=== PATIENT | female | born 1930 | race Caucasian/White ===

== ENCOUNTER 2017-01-04 03:23 | Inpatient (IN) | payer MEDICARE, OTHER ==
[2017-01-04] MEDS ORDERED: Sodium Chloride 0.9% 10 ML Syringe FLUSH PRN ×2 (03:35)
[2017-01-04] MEDS ORDERED: Sodium Chloride 0.9% 1,000 ML IV ONE (03:35)
[2017-01-04] MEDS ORDERED: Sodium Chloride 0.9% 2.5 ML Syringe FLUSH PRN ×2 (03:35)
--- NOTE | 2017-01-04 03:40 | EDM.PDOC ---
ED HISTORY OF PRESENT ILLNESS - General Chief Complaint: Respiratory Problem Stated Complaint: COUGH Time Seen by Provider: 01/04/17 03:30 Source of Information: Reports: Patient History Limitations: Reports: No limitations - History of Present Illness INITIAL COMMENTS - FREE TEXT/NARRATIVE: HISTORY AND PHYSICAL: History of present illness: [86-year-old female with a history of atrial fibrillation [place] relative with which he is compliant, congestive heart failure on Lasix also with which she is compliant lives in assisted living now brought in by EMS for evaluation of shortness of breath and hypoxia. Patient feels she's had fever, chills, sweats and productive cough with yellow sputum denies headache or stiff neck. No abdominal pain. Normal bowel and bladder habits. Patient denies pleuritic chest pain.] Review of systems: As per history of present illness and below otherwise all systems reviewed and negative. Past medical history: As per history of present illness and as reviewed below otherwise noncontributory. Surgical history: As per history of present illness and as reviewed below otherwise noncontributory. Social history: No reported history of drug or alcohol abuse. Family history: As per history of present illness and as reviewed below otherwise noncontributory. Physical exam: HEENT: Atraumatic, normocephalic, pupils reactive, negative for conjunctival pallor or scleral icterus, mucous membranes moist, throat clear, neck supple, nontender, trachea midline. Lungs: mild scattered rhonchi, breath sounds equal bilaterally, chest nontender. Heart: S1S2, regular, negative for clicks, rubs, or JVD. Abdomen: Soft, nondistended, nontender. Negative for masses or hepatosplenomegaly. Negative for costovertebral tenderness. Pelvis: Stable nontender. Genitourinary: Deferred. Rectal: Deferred. Extremities: Atraumatic, negative for cords or calf pain. Neurovascular unremarkable. Neuro: Awake, alert, oriented. Cranial nerves grossly unremarkable. Cerebellum unremarkable. Motor and sensory unremarkable throughout. Exam nonfocal. Diagnostics: [] Therapeutics: [] Impression: [] Plan: [] Definitive disposition and diagnosis as appropriate pending reevaluation and review of above. - Related Data Allergies/ADRs: Allergies Allergy/AdvReac Type Severity Reaction Status Date / Time No Known Allergies Allergy Verified 01/04/17 03:33 Home Meds: Home Meds Metoprolol Tartrate [Lopressor] 3 tab PO BID 01/12/15 [History] Multivitamin [Multiple Vitamins] 1 tab PO DAILY 01/12/15 [History] [place]-3S/DHA/Epa/Fish Oil [Fish Oil Dr 1,000 mg Softgel] 1,000 mg PO DAILY 01/12 [History] Potassium Chloride 20 meq PO DAILY 01/12/15 [History] Furosemide [Lasix] 20 mg PO DAILY #20 tab 01/14/15 [Rx] Rivaroxaban [Xarelto] 20 mg PO DAILY 09/09/15 [History] Aspirin [Ecotrin] 1 tab PO DAILY 01/04/17 [History] Citalopram Hydrobromide [Celexa] 1 tab PO DAILY 01/04/17 [History] Digoxin 1 tab PO ASDIRECTED 01/04/17 [History] Losartan [Cozaar] 12.5 mg PO DAILY 01/04/17 [History] Lutein/Minerals/Vit A,C & E [Ocuvite] 1 tab PO DAILY 01/04/17 [History] Pantoprazole [Protonix] 1 tab PO DAILY 01/04/17 [History] Pravastatin [Pravachol] 1 tab PO BEDTIME 01/04/17 [History] Spironolactone [Aldactone] 25 mg PO DAILY 01/04/17 [History] Past Medical History Other Cardiovascular History: cardiac arrest in May 2015 Social & Family History - Tobacco Use Smoking Status *Q: Never Smoker Second Hand Smoke Exposure: No - Alcohol Use Days Per Week of Alcohol Use: 0 - Recreational Drug Use Recreational Drug Use: No ED ROS GENERAL - Review of Systems Review Of Systems: See Below (Per history of present illness) ED EXAM, GENERAL - Physical Exam Exam: See Below (Per history of present illness) Course - Vital Signs Text/Narrative:: Signs and symptoms consistent with respiratory infection with fever and productive cough an elderly female who is hypoxic at 88% on presentation. Rectal temp 101 treated with Tylenol. Blood cultures and sputum culture pending. Patient 92% on 2 L nasal cannula. She does not wear home oxygen baseline. Denies chest pain. No pleuritic pain or extremity swelling. Patient reports normal bowel and bladder habits. Chest x-ray unremarkable interpreted by me report reviewed. Flu swab pending. Labs unremarkable. Given patient's fever and hypoxia in the setting of respiratory infection without visible infiltrate suspect likely viral infection. Flu saw pending. Will admit to inpatient status continue supplemental oxygen respiratory therapy, administer antibiotic therapy for clinical diagnosis of pneumonia, and further workup and treatment as needed. Case discussed with Dr. Luis Mejia hospitalist fashion illustrator who is aware history and findings recent inpatient admission to his service for further workup and treatment as well supplemental oxygen. Last Recorded V/S: Last Vital Signs Temp 38.3 C H 01/04/17 04:25 Pulse 73 01/04/17 05:51 Resp 17 01/04/17 05:51 BP 125/65 01/04/17 05:51 Pulse Ox 93 L 01/04/17 05:51 - Orders/Labs/Meds Orders: Active Orders 24 hr Category Date Time Status EKG Documentation Completion [RC] STAT Care 01/04/17 03:33 Active Peripheral IV Care [RC] . DIRECTED Care 01/04/17 03:35 Active RT Aerosol Therapy [RC] ASDIRECTED Care 01/04/17 04:41 Active Chest 1V Frontal [CR] Stat Exams 01/04/17 03:33 Taken CULTURE BLOOD [BC] Stat Lab 01/04/17 03:50 Received CULTURE BLOOD [BC] Stat Lab 01/04/17 03:55 Received CULTURE SPUTUM + SMEAR [RM] Stat Lab 01/04/17 04:18 Uncollected DIGOXIN [CHEM] Stat Lab 01/04/17 06:23 Ordered Azithromycin [Zithromax] 500 mg Med 01/04/17 06:21 Ordered Sodium Chloride 0.9% [Normal Saline] 250 ml IV ONETIME Sodium Chloride 0.9% [Normal Saline] 1,000 ml Med 01/04/17 03:35 Active IV .Bolus Sodium Chloride 0.9% [Saline Flush] Med 01/04/17 03:35 Active 10 ml FLUSH ASDIRECTED PRN Sodium Chloride 0.9% [Saline Flush] Med 01/04/17 03:35 Active 10 ml FLUSH ASDIRECTED PRN Sodium Chloride 0.9% [Saline Flush] Med 01/04/17 03:35 Active 2.5 ml FLUSH ASDIRECTED PRN Sodium Chloride 0.9% [Saline Flush] Med 01/04/17 03:35 Active 2.5 ml FLUSH ASDIRECTED PRN cefTRIAXone [Rocephin in Dextrose,Iso-Osm 1 GM/50 ML] 1 Med 01/04/17 06:21 Ordered gm Premix Bag 1 bag IV ONETIME Blood Culture x2 Reflex Set [OM.PC] Stat Oth 01/04/17 03:36 Ordered Peripheral IV Insertion Adult [OM.PC] Stat Oth 01/04/17 03:35 Ordered Medication Orders Sodium Chloride (Normal Saline) 1,000 mls @ 125 mls/hr IV .Bolus ONE Stop: 01/04/17 11:34 Last Admin: 01/04/17 04:02 Dose: 125 mls/hr Azithromycin 500 mg/ Sodium (Chloride) 250 mls @ 250 mls/hr IV ONETIME ONE Stop: 01/04/17 07:20 Last Admin: 01/04/17 06:28 Dose: 250 mls/hr Ceftriaxone Sodium/Dextrose 1 (gm/ Premix) 50 mls @ 100 mls/hr IV ONETIME ONE Stop: 01/04/17 06:50 Last Admin: 01/04/17 06:28 Dose: 100 mls/hr Sodium Chloride (Saline Flush) 10 ml FLUSH ASDIRECTED PRN PRN Reason: Keep Vein Open Last Admin: 01/04/17 03:51 Dose: 10 ml Sodium Chloride (Saline Flush) 2.5 ml FLUSH ASDIRECTED PRN PRN Reason: Keep Vein Open Last Admin: 01/04/17 03:56 Dose: 2.5 ml Sodium Chloride (Saline Flush) 10 ml FLUSH ASDIRECTED PRN PRN Reason: Keep Vein Open Last Admin: 01/04/17 03:56 Dose: 10 ml Sodium Chloride (Saline Flush) 2.5 ml FLUSH ASDIRECTED PRN PRN Reason: Keep Vein Open Last Admin: 01/04/17 03:56 Dose: 2.5 ml Labs: Laboratory Tests 01/04/17 01/04/17 01/04/17 Range/Units 03:50 03:50 03:50 WBC 9.59 (4.0-11.0) K/uL RBC 4.82 (4.30-5.90) M/uL Hgb 15.1 (12.0-16.0) g/dL Hct 45.1 (36.0-46.0) % MCV 93.6 (80.0-98.0) fL MCH 31.3 (27.0-32.0) pg MCHC 33.5 (31.0-37.0) g/dL RDW Std Deviation 45.1 (28.0-62.0) fl RDW Coeff of [place] 13 (11.0-15.0) % Plt Count 144 L (150-400) K/uL MPV 10.60 (7.40-12.00) fL Neut % (Auto) 69.7 (48.0-80.0) % Lymph % (Auto) 16.4 (16.0-40.0) % [place] % (Auto) 12.3 (0.0-15.0) % Eos % (Auto) 1.5 (0.0-7.0) % Baso % (Auto) 0.1 (0.0-1.5) % Neut # 6.7 H (1.4-5.7) K/uL Lymph # 1.6 (0.6-2.4) K/uL [place] # 1.2 H (0.0-0.8) K/uL Eos # 0.1 (0.0-0.7) K/uL Baso # 0.0 (0.0-0.1) K/uL Nucleated RBC % 0.0 /100WBC Nucleated RBCs # 0 K/uL Lactate (0.20-2.00) mmol/L Sodium 137 (136-146) mmol/L Potassium 4.3 (3.5-5.1) mmol/L Chloride 101 (98-110) mmol/L Carbon Dioxide 25 (21-31) mmol/L BUN 25 H (6.0-23.0) mg/dL Creatinine 1.3 (0.6-1.5) mg/dL Est Cr Clr Drug Dosing 23.66 mL/min Estimated GFR (MDRD) 38.7 ml/min Glucose 154 H (60-110) mg/dL Calcium 9.2 (8.8-10.8) mg/dL Total Bilirubin 1.3 (0.1-1.5) mg/dL AST 26 (5-40) IU/L ALT 17 (8-54) IU/L Alkaline Phosphatase 64 (40-150) Troponin I < 0.10 (0.0-0.29) NG/ML Total Protein 7.3 (6.0-8.0) g/dL Albumin 3.8 (3.4-4.8) g/dL Globulin 3.5 (2.0-3.5) g/dL Albumin/Globulin Ratio 1.1 L (1.3-2.8) Urine Color Urine Appearance Urine pH (5.0-8.0) Ur Specific [place] (1.001-1.035) Urine Protein (NEGATIVE) mg/dL Urine Glucose (UA) (NEGATIVE) mg/dL Urine Ketones (NEGATIVE) mg/dL Urine Occult Blood (NEGATIVE) Urine Nitrite (NEGATIVE) Urine Bilirubin (NEGATIVE) Urine Urobilinogen (<2.0) EU/dL Ur Leukocyte Esterase (NEGATIVE) Urine RBC (0-2/HPF) Urine WBC (0-5/HPF) Ur Epithelial Cells (NONE-FEW) Urine Bacteria (NEGATIVE) Hyaline Casts (0-2/LPF) Urine Mucus (NONE-MOD) 01/04/17 01/04/17 Range/Units 03:55 05:00 WBC (4.0-11.0) K/uL RBC (4.30-5.90) M/uL Hgb (12.0-16.0) g/dL Hct (36.0-46.0) % MCV (80.0-98.0) fL MCH (27.0-32.0) pg MCHC (31.0-37.0) g/dL RDW Std Deviation (28.0-62.0) fl RDW Coeff of [place] (11.0-15.0) % Plt Count (150-400) K/uL MPV (7.40-12.00) fL Neut % (Auto) (48.0-80.0) % Lymph % (Auto) (16.0-40.0) % [place] % (Auto) (0.0-15.0) % Eos % (Auto) (0.0-7.0) % Baso % (Auto) (0.0-1.5) % Neut # (1.4-5.7) K/uL Lymph # (0.6-2.4) K/uL [place] # (0.0-0.8) K/uL Eos # (0.0-0.7) K/uL Baso # (0.0-0.1) K/uL Nucleated RBC % /100WBC Nucleated RBCs # K/uL Lactate 1.6 (0.20-2.00) mmol/L Sodium (136-146) mmol/L Potassium (3.5-5.1) mmol/L Chloride (98-110) mmol/L Carbon Dioxide (21-31) mmol/L BUN (6.0-23.0) mg/dL Creatinine (0.6-1.5) mg/dL Est Cr Clr Drug Dosing mL/min Estimated GFR (MDRD) ml/min Glucose (60-110) mg/dL Calcium (8.8-10.8) mg/dL Total Bilirubin (0.1-1.5) mg/dL AST (5-40) IU/L ALT (8-54) IU/L Alkaline Phosphatase (40-150) Troponin I (0.0-0.29) NG/ML Total Protein (6.0-8.0) g/dL Albumin (3.4-4.8) g/dL Globulin (2.0-3.5) g/dL Albumin/Globulin Ratio (1.3-2.8) Urine Color YELLOW Urine Appearance SLT CLOUDY Urine pH 5.5 (5.0-8.0) Ur Specific [place] >= 1.030 (1.001-1.035) Urine Protein TRACE (NEGATIVE) mg/dL Urine Glucose (UA) NEGATIVE (NEGATIVE) mg/dL Urine Ketones TRACE H (NEGATIVE) mg/dL Urine Occult Blood NEGATIVE (NEGATIVE) Urine Nitrite NEGATIVE (NEGATIVE) Urine Bilirubin NEGATIVE (NEGATIVE) Urine Urobilinogen 1.0 (<2.0) EU/dL Ur Leukocyte Esterase NEGATIVE (NEGATIVE) Urine RBC 0-2 (0-2/HPF) Urine WBC 3-4 (0-5/HPF) Ur Epithelial Cells MANY (NONE-FEW) Urine Bacteria FEW (NEGATIVE) Hyaline Casts 7-10 (0-2/LPF) Urine Mucus MODERATE (NONE-MOD) Meds: Medications Generic Name Dose Route Start Last Admin Trade Name Freq PRN Reason Stop Dose Admin Sodium Chloride 1,000 mls @ 125 mls/hr 01/04/17 03:35 01/04/17 04:02 Normal Saline IV 01/04/17 11:34 125 mls/hr .Bolus ONE Administration Azithromycin 500 mg/ Sodium 250 mls @ 250 mls/hr 01/04/17 06:21 01/04/17 06: 28 Chloride IV 01/04/17 07:20 250 mls/hr ONETIME ONE Administration Ceftriaxone Sodium/Dextrose 1 50 mls @ 100 mls/hr 01/04/17 06:21 01/04/17 06: 28 gm/ Premix IV 01/04/17 06:50 100 mls/hr ONETIME ONE Administration Sodium Chloride 10 ml 01/04/17 03:35 01/04/17 03:51 Saline Flush FLUSH 10 ml ASDIRECTED PRN Administration Keep Vein Open Sodium Chloride 2.5 ml 01/04/17 03:35 01/04/17 03:56 Saline Flush FLUSH 2.5 ml ASDIRECTED PRN Administration Keep Vein Open Sodium Chloride 10 ml 01/04/17 03:35 01/04/17 03:56 Saline Flush FLUSH 10 ml ASDIRECTED PRN Administration Keep Vein Open Sodium Chloride 2.5 ml 01/04/17 03:35 01/04/17 03:56 Saline Flush FLUSH 2.5 ml ASDIRECTED PRN Administration Keep Vein Open Discontinued Medications Generic Name Dose Route Start Last Admin Trade Name Freq PRN Reason Stop Dose Admin Albuterol/Ipratropium 3 ml 01/04/17 04:41 01/04/17 04:46 Duoneb 3.0-0.5 Mg/3 Ml NEB 01/04/17 04:42 3 ml ONETIME ONE Administration Ceftriaxone Sodium/Dextrose 1 50 mls @ 100 mls/hr 01/04/17 05:50 gm/ Premix IV 01/04/17 06:19 ONETIME ONE Departure - Departure Time of Disposition: 05:00 Disposition: Admitted As Inpatient 64 Condition: fair Clinical Impression: Hypoxia, Fever, Pneumonia Referrals: PCP,None [Primary Care Provider] - - My Orders Last 24 Hours: My Active Orders 01/04/17 03:33 EKG Documentation Completion [RC] STAT Chest 1V Frontal [CR] Stat 01/04/17 03:35 Peripheral IV Care [RC] . DIRECTED Sodium Chloride 0.9% [Normal Saline] 1,000 ml IV .Bolus Sodium Chloride 0.9% [Saline Flush] 10 ml FLUSH ASDIRECTED PRN Sodium Chloride 0.9% [Saline Flush] 10 ml FLUSH ASDIRECTED PRN Sodium Chloride 0.9% [Saline Flush] 2.5 ml FLUSH ASDIRECTED PRN Sodium Chloride 0.9% [Saline Flush] 2.5 ml FLUSH ASDIRECTED PRN Peripheral IV Insertion Adult [OM.PC] Stat 01/04/17 03:36 Blood Culture x2 Reflex Set [OM.PC] Stat 01/04/17 03:50 CULTURE BLOOD [BC] Stat 01/04/17 03:55 CULTURE BLOOD [BC] Stat 01/04/17 04:18 CULTURE SPUTUM + SMEAR [RM] Stat 01/04/17 04:41 RT Aerosol Therapy [RC] ASDIRECTED 01/04/17 06:21 Azithromycin [Zithromax] 500 mg Sodium Chloride 0.9% [Normal Saline] 250 ml IV ONETIME cefTRIAXone [Rocephin in Dextrose,Iso-Osm 1 GM/50 ML] 1 gm Premix Bag 1 bag IV ONETIME 01/04/17 06:23 DIGOXIN [CHEM] Stat - Assessment/Plan Last 24 Hours: My Active Orders 01/04/17 03:33 EKG Documentation Completion [RC] STAT Chest 1V Frontal [CR] Stat 01/04/17 03:35 Peripheral IV Care [RC] . DIRECTED Sodium Chloride 0.9% [Normal Saline] 1,000 ml IV .Bolus Sodium Chloride 0.9% [Saline Flush] 10 ml FLUSH ASDIRECTED PRN Sodium Chloride 0.9% [Saline Flush] 10 ml FLUSH ASDIRECTED PRN Sodium Chloride 0.9% [Saline Flush] 2.5 ml FLUSH ASDIRECTED PRN Sodium Chloride 0.9% [Saline Flush] 2.5 ml FLUSH ASDIRECTED PRN Peripheral IV Insertion Adult [OM.PC] Stat 01/04/17 03:36 Blood Culture x2 Reflex Set [OM.PC] Stat 01/04/17 03:50 CULTURE BLOOD [BC] Stat 01/04/17 03:55 CULTURE BLOOD [BC] Stat 01/04/17 04:18 CULTURE SPUTUM + SMEAR [RM] Stat 01/04/17 04:41 RT Aerosol Therapy [RC] ASDIRECTED 01/04/17 06:21 Azithromycin [Zithromax] 500 mg Sodium Chloride 0.9% [Normal Saline] 250 ml IV ONETIME cefTRIAXone [Rocephin in Dextrose,Iso-Osm 1 GM/50 ML] 1 gm Premix Bag 1 bag IV ONETIME 01/04/17 06:23 DIGOXIN [CHEM] Stat
[2017-01-04] MEDS ORDERED: Albuterol/Ipratropium 3.0-0.5 MG/3 ML Neb Soln NEB ONE (04:41)
[2017-01-04] MEDS ORDERED: cefTRIAXone 1 GM in Premix Bag 1 BAG IV ONE ×2 (05:50→06:21)
[2017-01-04] MEDS ORDERED: Azithromycin 500 MG in Sodium Chloride 0.9% 250 ML IV ONE (06:21)
[2017-01-04] MEDS ORDERED: Flu Vaccine 2016-17(36Mos+)/PF 60 MCG/0.5 ML Syringe IM ONE (07:57)
--- NOTE | 2017-01-04 09:45 | PCM.HP ---
H&P History of Present Illness - General Date of Service: 01/04/17 Admit Problem/Dx: Admission Diagnosis/Problem Admission Diagnosis/Problem Hypoxia - History of Present Illness Initial Comments - Free Text/Narative: This 86 year old female with pmh of HTN, afib on chronic anticoagulation presented to the ED with complaints of worsening cough and SOB. She reports she started feeling ill last week around Monday. She thought she was feeling better on Monday but then the coughing really started. She denies having any fever or chills at home, but didn't measure her temperature. She is coughing up yellow green sputum and the cough is keeping her up, she is tired and has some malaise. She denies any abdominal pain, urinary symptoms or N/V or diarrhea. She denies ear pain, sinus congestion or sore throat. No neck pain or rigidity. She denies any chest pain. In the ED, WBC 9,590, hgb 15.1, Plt 144, BUN 25, Cr 1.3, glucose 154. UA negative, Dig level 0.4 and CXR negative. BC were obtained and influenza swab was negative. She will be admitted for hypoxia and suspected pneumonia. - Related Data Allergies/Adverse Reactions: Allergies Allergy/AdvReac Type Severity Reaction Status Date / Time No Known Allergies Allergy Verified 01/04/17 03:33 Home Medications: Home Meds Metoprolol Tartrate [Lopressor] 75 mg PO BID 01/12/15 [History] Multivitamin [Multiple Vitamins] 1 tab PO DAILY 01/12/15 [History] [place]-3S/DHA/Epa/Fish Oil [Fish Oil Dr 1,000 mg Softgel] 1,000 mg PO DAILY 01/12 [History] Potassium Chloride 20 meq PO DAILY 01/12/15 [History] Furosemide [Lasix] 20 mg PO DAILY #20 tab 01/14/15 [Rx] Rivaroxaban [Xarelto] 20 mg PO WITHDINNER 09/09/15 [History] Aspirin [Ecotrin] 81 mg PO DAILY 01/04/17 [History] Citalopram Hydrobromide [Celexa] 10 mg PO DAILY 01/04/17 [History] Digoxin 0.125 mg PO Q2D@0900 01/04/17 [History] Losartan [Cozaar] 12.5 mg PO DAILY 01/04/17 [History] Lutein/Minerals/Vit A,C & E [Ocuvite] 1 tab PO DAILY 01/04/17 [History] Pantoprazole [Protonix] 40 mg PO DAILY 01/04/17 [History] Pravastatin [Pravachol] 20 mg PO BEDTIME 01/04/17 [History] Spironolactone [Aldactone] 25 mg PO DAILY 01/04/17 [History] Past Medical History HEENT History: Reports: Impaired vision Cardiovascular History: Reports: Afib, High cholesterol, Hypertension, [place] Other Cardiovascular History: cardiac arrest in May 2015 Respiratory History: Reports: None. Denies: Asthma, COPD, PE Gastrointestinal History: Reports: None. Denies: GERD, GI bleed Genitourinary History: Reports: None. Denies: Chronic renal insuffiency Musculoskeletal History: Reports: None Endocrine/Metabolic History: Denies: Diabetes, type II, Hypothyroidism - Infectious Disease History Infectious Disease History: Reports: Chicken pox, Measles Social & Family History - Family History Family Medical History: Noncontributory - Tobacco Use Smoking Status *Q: Never Smoker Second Hand Smoke Exposure: No - Caffeine Use Caffeine Use: Reports: Coffee Caffeine Use Comment: 1cup/day - Alcohol Use Days Per Week of Alcohol Use: 0 - Recreational Drug Use Recreational Drug Use: No H&P Review of Systems - Review of Systems: Review Of Systems: See Below General: Reports: malaise, fatigue. Denies: fever, chills HEENT: Reports: rhinitis. Denies: sinus congestion, sore throat, vertigo Pulmonary: Reports: Shortness of Breath, Wheezing, Cough, Sputum (yellow sputum) Cardiovascular: Reports: no symptoms. Denies: chest pain, palpitations, dyspnea on exertion, edema, syncope Gastrointestinal: Reports: No symptoms. Denies: Abdominal pain, Black stool, Bloody stool, Vomiting Genitourinary: Reports: no symptoms. Denies: dysuria, frequency, burning Musculoskeletal: Reports: no symptoms Skin: Reports: no symptoms Psychiatric: Reports: no symptoms Neurological: Reports: No Symptoms Hematologic/Lymphatic: Reports: no symptoms Immunologic: Reports: no symptoms Exam - Exam Exam: See Below - Vital Signs Vital Signs: Last Vital Signs Temp 98.2 F 01/04/17 09:40 Pulse 105 H 01/04/17 09:40 Resp 18 01/04/17 09:40 BP 113/71 01/04/17 09:40 Pulse Ox 93 L 01/04/17 09:40 Weight: 55 kg - Exam General: alert, oriented, cooperative HEENT: Conjunctiva clear, EACs clear, EOMI, Hearing intact, Mucosa moist & pink , Nares patent, Posterior pharynx clear, TMs clear, PERRLA Neck: supple, trachea midline, full range of motion. No: lymphadenopathy, JVD Lungs: Normal respiratory effort, Rhonchi (throughout lung warren, scant wheezing) Cardiovascular: regular rate, regular rhythm, irregular rhythm Extremities: normal inspection, normal pulses, edema (trace BLE) Peripheral Pulses: 2+: posterior tibial (L), posterior tibial (R), dorsalis pedis (L), dorsalis pedis (R) Neuro Extensive - Mental Status: alert, oriented x3, normal mood/affect, normal cognition Neuro Extensive - Motor, Sensory, Reflexes: CN II-XII intact, normal gait, normal reflexes Psychiatric: alert, normal affect, normal mood - Patient Data Result Diagrams: 01/04/17 03:50 01/04/17 03:50 *Q Meaningful Use (ADM) - VTE *Q VTE Criteria *Q: - Stroke *Q Stroke Criteria *Q: - AMI *Q AMI Criteria *Q: - Problem List (1) Hypoxia SNOMED Code(s): 932701608, 757445045 ICD Code: R09.02 - HYPOXEMIA Status: Acute Current Visit: Yes (2) Pneumonia SNOMED Code(s): 145759783 ICD Code: J18.9 - PNEUMONIA, UNSPECIFIED ORGANISM Status: Acute Current Visit: Yes (3) CHF, Congestive heart failure SNOMED Code(s): 98665806 ICD Code: I50.9 - HEART FAILURE, UNSPECIFIED Status: Chronic Current Visit: No (4) A-fib SNOMED Code(s): 25343320 ICD Code: I48.91 - UNSPECIFIED ATRIAL FIBRILLATION Status: Chronic Current Visit: No Qualifiers: Atrial fibrillation type: paroxysmal Qualified Code(s): I48.0 - Paroxysmal atrial fibrillation (5) HTN (hypertension) SNOMED Code(s): 25016356 ICD Code: I10 - ESSENTIAL (PRIMARY) HYPERTENSION Status: Chronic Current Visit: No Qualifiers: Hypertension type: essential hypertension Qualified Code(s): I10 - Essential (primary) hypertension (6) Anticoagulated SNOMED Code(s): 92146602, 109681153 ICD Code: Z79.01 - WHEEL LACER AND TRUER (CURRENT) USE OF ANTICOAGULANTS Status: Chronic Current Visit: Yes Problem Details: Xarelto Problem List Initiated/Reviewed/Updated: Yes Orders Last 24hrs: Active Orders 24 hr Category Date Time Status EKG 12 Lead [EKG Documentation Completion] [RC] STAT Care 01/04/17 09:36 Active Heart Healthy Diet [DIET] Diet 01/04/17 Lunch Ordered Aspirin [Halfprin] Med 01/04/17 09:45 Ordered 1 tab PO DAILY Citalopram Hydrobromide Med 01/05/17 09:00 Ordered 1 tab PO DAILY Digoxin [Lanoxin] Med 01/04/17 09:45 Ordered 1 tab PO ASDIRECTED Lutein/Minerals/Vit A,C & E Med 01/05/17 09:00 Ordered 1 tab PO DAILY Metoprolol Tartrate [Lopressor] Med 01/04/17 09:45 Ordered 3 tab PO BID Rivaroxaban [Xarelto] Med 01/05/17 17:00 Ordered 20 mg PO DAILY Resuscitation Status Routine Resus Stat 01/04/17 09:42 Ordered Medication Orders Sodium Chloride (Normal Saline) 1,000 mls @ 125 mls/hr IV .Bolus ONE Stop: 01/04/17 11:34 Last Admin: 01/04/17 04:02 Dose: 125 mls/hr Sodium Chloride (Saline Flush) 10 ml FLUSH ASDIRECTED PRN PRN Reason: Keep Vein Open Last Admin: 01/04/17 03:56 Dose: 10 ml Sodium Chloride (Saline Flush) 2.5 ml FLUSH ASDIRECTED PRN PRN Reason: Keep Vein Open Last Admin: 01/04/17 03:56 Dose: 2.5 ml Assessment/Plan Comment:: This 86 year old female admitted with hypoxia and suspected pneumonia 1. Hypoxia: Currently requiring 2-3 L to keep sats above 90%. Will monitor, encouraged IS use every hour at least. Oxygen PRN, wean as possible. 2. Pneumonia: Community acquired, will treat with Azithromycin and Rocephin. Monitor improvement. 3. Afib: Pacemaker, on Xarelto, Continue Metoprolol and Digoxin. Monitor on telemetry. HR afib 90-100s. 4. CHF: BUN/ CR slightly elevated. Will hold Lasix, SPironolactone for today. 5. HTN: Hold Losartan for today monitor BMP in am. VTE: Xarelto, ambulation DIspo: 2-4 days pending improvement.
[2017-01-04] MEDS: Aspirin 81 MG Tab.EC PO SCH (10:12)
[2017-01-04] MEDS: Metoprolol Tartrate 25 MG Tab PO SCH ×2 (10:13→20:22)
[2017-01-04] MEDS: Digoxin 125 MCG Tab PO SCH (10:40)
--- NOTE | 2017-01-04 15:03 | CR ---
EXAM DATE: 01/04/17 PATIENT'S AGE: 86 Patient: LUCHO AUGUST Facility: [place], [place] Site . Site : 1930 Study: XRay Chest [id number]/22/2017 4:06:17 AM Ordering Physician: Doctor Bella Final Report: INDICATIONS: Shortness of breath. Fatigue. History of CHF. TECHNIQUE: Chest 1 view. COMPARISON: Chest radiograph January 12, 2015. FINDINGS: Intracardiac device appears appropriately positioned. No pneumothorax, pleural effusion or airspace consolidation. Aortic atherosclerosis. Cardiomegaly. No pulmonary edema. Upper abdomen and osseous structures show no acute abnormality. IMPRESSION: No evidence of acute cardiopulmonary disease. Cardiomegaly. Dictated by Elie Corral MD @ 01/04/2017 4:11:29 AM Dictated by: Elie Corral MD @ 01/04/2017 04:12:02 (Electronic Signature) Report Signed by Proxy and Original Signed Document filed in the Medical Record. MTDD
[2017-01-04] MEDS ORDERED: Albuterol/Ipratropium 3.0-0.5 MG/3 ML Neb Soln NEB PRN (16:15)
[2017-01-04] MEDS: Rivaroxaban 10 MG Tab PO SCH (20:22)
[2017-01-05] MEDS: cefTRIAXone 1 GM in Premix Bag 1 BAG IV SCH (04:19)
[2017-01-05] MEDS ORDERED: Magnesium Sulfate/Water 2 GM in Premix Bag 1 BAG IV ONE (08:04)
[2017-01-05] MEDS: Aspirin 81 MG Tab.EC PO SCH (08:42)
[2017-01-05] MEDS: Azithromycin 250 MG Tab PO SCH (08:42)
[2017-01-05] MEDS: Citalopram 20 MG Tab PO SCH (08:42)
[2017-01-05] MEDS: Metoprolol Tartrate 25 MG Tab PO SCH ×2 (08:48→21:21)
--- NOTE | 2017-01-05 08:55 | PCM.PN ---
- General Info Date of Service: 01/05/17 Admission Dx/Problem (Free Text): Admission Diagnosis/Problem Admission Diagnosis/Problem Hypoxia Subjective Update: Just wakig up this am, feeling a little better. "I actually got some sleep last night." Coughing continues, but she continues to clear secretions well and feels this is improving. No chest pain or SOB. Has no other complaints this morning. Functional Status: Reports: pain controlled, tolerating diet, ambulating, urinating - Review of Systems General: Reports: No Symptoms. Denies: Fever HEENT: Reports: rhinitis. Denies: sinus congestion, sore throat Pulmonary: Reports: cough, sputum. Denies: shortness of breath Cardiovascular: Reports: No Symptoms. Denies: Chest Pain, Dyspnea on Exertion, Edema Gastrointestinal: Reports: No symptoms. Denies: Abdominal pain, Nausea, Vomiting Genitourinary: Reports: no symptoms. Denies: dysuria, frequency, burning Musculoskeletal: Reports: no symptoms - Patient Data Vitals - most recent: Last Vital Signs Temp 97.6 F 01/05/17 04:00 Pulse 71 01/05/17 08:48 Resp 18 01/05/17 04:00 BP 104/58 L 01/05/17 08:48 Pulse Ox 95 01/05/17 04:00 Weight - most recent: 55 kg I&O - last 24 hours: Intake & Output 01/04/17 01/05/17 01/05/17 22:59 06:59 14:59 Intake Total 400 250 Output Total 350 400 Balance 50 -150 Lab Results last 24 hrs: Laboratory Results - last 24 hr 01/05/17 01/05/17 Range/Units 04:59 04:59 WBC 7.29 (4.0-11.0) K/uL RBC 4.33 (4.30-5.90) M/uL Hgb 13.5 (12.0-16.0) g/dL Hct 41.1 (36.0-46.0) % MCV 94.9 (80.0-98.0) fL MCH 31.2 (27.0-32.0) pg MCHC 32.8 (31.0-37.0) g/dL RDW Std Deviation 45.8 (28.0-62.0) fl RDW Coeff of Drake 13 (11.0-15.0) % Plt Count 139 L (150-400) K/uL MPV 10.60 (7.40-12.00) fL Neut % (Auto) 58.9 (48.0-80.0) % Lymph % (Auto) 25.0 (16.0-40.0) % [place] % (Auto) 12.9 (0.0-15.0) % Eos % (Auto) 2.9 (0.0-7.0) % Baso % (Auto) 0.3 (0.0-1.5) % Neut # (Auto) 4.3 (1.4-5.7) K/uL Lymph # (Auto) 1.8 (0.6-2.4) K/uL [place] # (Auto) 0.9 H (0.0-0.8) K/uL Eos # (Auto) 0.2 (0.0-0.7) K/uL Baso # (Auto) 0.0 (0.0-0.1) K/uL Nucleated RBC % 0.0 /100WBC Nucleated RBCs # 0 K/uL Sodium 140 (136-146) mmol/L Potassium 4.3 (3.5-5.1) mmol/L Chloride 104 (98-110) mmol/L Carbon Dioxide 27 (21-31) mmol/L BUN 20 (6.0-23.0) mg/dL Creatinine 0.9 (0.6-1.5) mg/dL Est Cr Clr Drug Dosing 34.17 mL/min Estimated GFR (MDRD) 59.1 ml/min Glucose 105 (60-110) mg/dL Calcium 8.2 L (8.8-10.8) mg/dL Magnesium 1.6 (1.5-2.3) mEq/L Med Orders - Current: Current Medications Albuterol/Ipratropium (Duoneb 3.0-0.5 Mg/3 Ml) 3 ml NEB Q4HRRT PRN PRN Reason: SOB/Wheezing Aspirin (Halfprin) 81 mg PO DAILY [facility] Last Admin: 01/05/17 08:42 Dose: 81 mg Azithromycin (Zithromax) 500 mg PO Q24H [facility] Last Admin: 01/05/17 08:42 Dose: 500 mg Citalopram Hydrobromide (Celexa) 10 mg PO DAILY [facility] Last Admin: 01/05/17 08:42 Dose: 10 mg Digoxin (Lanoxin) 125 mcg PO Q2D [facility] Last Admin: 01/04/17 10:40 Dose: 125 mcg Ceftriaxone Sodium/Dextrose 1 (gm/ Premix) 50 mls @ 100 mls/hr IV Q24H [facility] Last Admin: 01/05/17 04:19 Dose: 100 mls/hr Magnesium Sulfate 2 gm/ Premix 50 mls @ 50 mls/hr IV ONETIME ONE Stop: 01/05/17 09:03 Last Admin: 01/05/17 08:24 Dose: 50 mls/hr Metoprolol Tartrate (Lopressor) 75 mg PO BID [facility] Last Admin: 01/05/17 08:48 Dose: 75 mg [facility]) [facility] Last Admin: 01/04/17 20:22 Dose: 20 mg Sodium Chloride (Saline Flush) 10 ml FLUSH ASDIRECTED PRN PRN Reason: Keep Vein Open Last Admin: 01/04/17 03:56 Dose: 10 ml Sodium Chloride (Saline Flush) 2.5 ml FLUSH ASDIRECTED PRN PRN Reason: Keep Vein Open Last Admin: 01/04/17 03:56 Dose: 2.5 ml Discontinued Medications Albuterol/Ipratropium (Duoneb 3.0-0.5 Mg/3 Ml) 3 ml NEB ONETIME ONE Stop: 01/04/17 04:42 Last Admin: 01/04/17 04:46 Dose: 3 ml Sodium Chloride (Normal Saline) 1,000 mls @ 125 mls/hr IV .Bolus ONE Stop: 01/04/17 11:34 Last Admin: 01/04/17 04:02 Dose: 125 mls/hr Ceftriaxone Sodium/Dextrose 1 (gm/ Premix) 50 mls @ 100 mls/hr IV ONETIME ONE Stop: 01/04/17 06:19 Last Admin: 01/04/17 06:34 Dose: Not Given Azithromycin 500 mg/ Sodium (Chloride) 250 mls @ 250 mls/hr IV ONETIME ONE Stop: 01/04/17 07:20 Last Admin: 01/04/17 06:28 Dose: 250 mls/hr Ceftriaxone Sodium/Dextrose 1 (gm/ Premix) 50 mls @ 100 mls/hr IV ONETIME ONE Stop: 01/04/17 06:50 Last Admin: 01/04/17 06:28 Dose: 100 mls/hr Influenza Virus Vaccine (Fluzone/Fluarix Vaccine) 60 mcg IM .ONCE ONE Stop: 01/04/17 07:58 Non-Formulary Medication (Lutein/Minerals/Vit A,C & E) 1 tab PO DAILY [facility] Rivaroxaban (Xarelto) 20 mg PO DAILY [facility] Sodium Chloride (Saline Flush) 10 ml FLUSH ASDIRECTED PRN PRN Reason: Keep Vein Open Last Admin: 01/04/17 03:51 Dose: 10 ml Sodium Chloride (Saline Flush) 2.5 ml FLUSH ASDIRECTED PRN PRN Reason: Keep Vein Open Last Admin: 01/04/17 03:56 Dose: 2.5 ml - Exam Quality Assessment: supplemental oxygen (1 L NC), DVT prophylaxis General: alert, oriented, cooperative HEENT: Pupils equal, Pupils reactive, EOMI, Mucous membr. moist/pink Neck: supple Lungs: Normal respiratory effort, Rhonchi. No: Wheezing Cardiovascular: Regular Rate, Regular Rhythm, No Murmurs Abdomen: bowel sounds present, soft, no tenderness, no distension Extremities: no edema, normal pulses, no tenderness/swelling Neurological: no new focal deficit Psy/Mental Status: alert, normal affect, normal mood - Problem List & Annotations (1) Hypoxia SNOMED Code(s): 245184407, 095159644 Code(s): R09.02 - HYPOXEMIA Status: Acute Current Visit: Yes (2) Pneumonia SNOMED Code(s): 131482457 Code(s): J18.9 - PNEUMONIA, UNSPECIFIED ORGANISM Status: Acute Current Visit: Yes (3) CHF, Congestive heart failure SNOMED Code(s): 10782769 Code(s): I50.9 - HEART FAILURE, UNSPECIFIED Status: Chronic Current Visit : No (4) A-fib SNOMED Code(s): 46277727 Code(s): I48.91 - UNSPECIFIED ATRIAL FIBRILLATION Status: Chronic Current Visit: No Qualifiers: Atrial fibrillation type: paroxysmal Qualified Code(s): I48.0 - Paroxysmal atrial fibrillation (5) HTN (hypertension) SNOMED Code(s): 34225608 Code(s): I10 - ESSENTIAL (PRIMARY) HYPERTENSION Status: Chronic Current Visit: No Qualifiers: Hypertension type: essential hypertension Qualified Code(s): I10 - Essential (primary) hypertension (6) Anticoagulated SNOMED Code(s): 43079194, 106968518 Code(s): Z79.01 - ASSISTED (CURRENT) USE OF ANTICOAGULANTS Status: Chronic Current Visit: Yes Annotation/Comment:: Xarelto - Problem List Review Problem List Initiated/Reviewed/Updated: Yes - My Orders Last 24 Hours: My Active Orders 01/04/17 09:42 Resuscitation Status Routine 01/04/17 09:45 Aspirin [Halfprin] 81 mg PO DAILY Digoxin [Lanoxin] 125 mcg PO Q2D Metoprolol Tartrate [Lopressor] 75 mg PO BID 01/04/17 13:03 Ambulate [RC] ASDIRECTED Oxygen Therapy [RC] ASDIRECTED RT Incentive Spirometry [RC] ASDIRECTED 01/04/17 13:04 Vital Signs [RC] Q4H 01/04/17 16:15 Albuterol/Ipratropium [DuoNeb 3.0-0.5 MG/3 ML] 3 ml NEB Q4HRRT PRN 01/04/17 Lunch Heart Healthy Diet [DIET] 01/05/17 05:00 cefTRIAXone [Rocephin in Dextrose,Iso-Osm 1 GM/50 ML] 1 gm Premix Bag 1 bag IV Q24H 01/05/17 08:04 Magnesium Sulfate/Water [Magnesium Sulfate 2 GM in Water 50 ML] 2 gm Premix Bag 1 bag IV ONETIME 01/05/17 09:00 Azithromycin [Zithromax] 500 mg PO Q24H Citalopram [Celexa] 10 mg PO DAILY 01/06/17 05:00 BASIC METABOLIC PANEL,BMP [CHEM] DAILY CBC WITH AUTO DIFF [HEME] DAILY MAGNESIUM [CHEM] DAILY 01/07/17 05:00 BASIC METABOLIC PANEL,BMP [CHEM] DAILY CBC WITH AUTO DIFF [HEME] DAILY MAGNESIUM [CHEM] DAILY - Plan Plan:: This 86 year old female admitted with hypoxia and suspected pneumonia 1. Hypoxia: Has been weaned to 1 L NC, wean as possible to keep sats above 90%. Will monitor, encouraged IS use every hour at least. 2. Pneumonia: Community acquired, improving, Continue Azithromycin and Rocephin. . 3. Afib: Pacemaker, on Xarelto, Continue Metoprolol and Digoxin. Monitor on telemetry. HR afib 90-100s. 4. CHF: BUN/ CR back to baseline. Slightly hypotensive this am, will monitor and restart Lasix, Spironolactone when able. 5. HTN: hypotension, 104/58. Hold Losartan for today monitor BP. VTE: Xarelto, ambulation DIspo: 2-3 days pending improvement.
[2017-01-05] MEDS ORDERED: Non-Formulary Medication 1 Each (Lutein/Minerals/Vit A,C & E 1 TAB) PO SCH (09:00)
[2017-01-05] MEDS ORDERED: Digoxin 500 MCG/2 ML Amp IVPUSH ONE (14:45)
[2017-01-05] MEDS ORDERED: Rivaroxaban 10 MG Tab PO SCH (17:00)
[2017-01-05] MEDS: Rivaroxaban 10 MG Tab PO SCH (17:16)
[2017-01-06] MEDS: cefTRIAXone 1 GM in Premix Bag 1 BAG IV SCH (04:35)
[2017-01-06] MEDS ORDERED: Magnesium Sulfate/Water 2 GM in Premix Bag 1 BAG IV ONE (07:49)
[2017-01-06] MEDS: Spironolactone 25 MG Tab PO SCH (09:22)
[2017-01-06] MEDS: Citalopram 20 MG Tab PO SCH (09:23)
[2017-01-06] MEDS: Losartan 50 MG Tab PO SCH (09:24)
[2017-01-06] MEDS: Aspirin 81 MG Tab.EC PO SCH (09:25)
[2017-01-06] MEDS: Potassium Chloride 20 MEQ Tab.ER PO SCH (09:26)
[2017-01-06] MEDS: Metoprolol Tartrate 25 MG Tab PO SCH ×2 (09:27→20:53)
[2017-01-06] MEDS: Furosemide 20 MG Tab PO SCH (09:27)
[2017-01-06] MEDS: Azithromycin 250 MG Tab PO SCH (09:29)
[2017-01-06] MEDS: Digoxin 125 MCG Tab PO SCH (10:58)
--- NOTE | 2017-01-06 11:54 | PCM.DCSUM1 ---
Discharge Summary - Discharge Data Discharge Date: 01/06/17 Discharge Disposition: Home, Self-Care 01 Condition: Good - Discharge Diagnosis/Problem(s) (1) Hypoxia SNOMED Code(s): 439913986, 556383159 ICD Code: R09.02 - HYPOXEMIA Status: Acute Current Visit: Yes (2) Pneumonia SNOMED Code(s): 743215722 ICD Code: J18.9 - PNEUMONIA, UNSPECIFIED ORGANISM Status: Acute Current Visit: Yes (3) CHF, Congestive heart failure SNOMED Code(s): 54828902 ICD Code: I50.9 - HEART FAILURE, UNSPECIFIED Status: Chronic Current Visit: No (4) A-fib SNOMED Code(s): 51659655 ICD Code: I48.91 - UNSPECIFIED ATRIAL FIBRILLATION Status: Chronic Current Visit: No Qualifiers: Atrial fibrillation type: paroxysmal Qualified Code(s): I48.0 - Paroxysmal atrial fibrillation (5) HTN (hypertension) SNOMED Code(s): 07623658 ICD Code: I10 - ESSENTIAL (PRIMARY) HYPERTENSION Status: Chronic Current Visit: No Qualifiers: Hypertension type: essential hypertension Qualified Code(s): I10 - Essential (primary) hypertension (6) Anticoagulated SNOMED Code(s): 15019905, 347786112 ICD Code: Z79.01 - HALFWAY (CURRENT) USE OF ANTICOAGULANTS Status: Chronic Current Visit: Yes Problem Details: Xarelto - Patient Instructions Diet: Heart Healthy Diet Activity: As Tolerated Driving: May Drive Today Showering/Bathing: May Shower Notify Provider of: Fever, Increased Pain, Swelling and Redness, Drainage, Nausea and/or Vomiting - Discharge Plan Prescriptions/Med Rec: Azithromycin [Zithromax] 250 mg PO Q24H #5 tablet Benzonatate [Tessalon Perles] 100 - 200 mg PO TID PRN #30 cap PRN Reason: Cough Digoxin 0.125 mg PO DAILY #30 tablet Home Medications: Home Meds Metoprolol Tartrate [Lopressor] 75 mg PO BID 01/12/15 [History] Multivitamin [Multiple Vitamins] 1 tab PO DAILY 01/12/15 [History] [place]-3S/DHA/Epa/Fish Oil [Fish Oil Dr 1,000 mg Softgel] 1,000 mg PO DAILY 01/12 [History] Potassium Chloride 20 meq PO DAILY 01/12/15 [History] Furosemide [Lasix] 20 mg PO DAILY #20 tab 01/14/15 [Rx] Rivaroxaban [Xarelto] 20 mg PO WITHDINNER 09/09/15 [History] Aspirin [Ecotrin] 81 mg PO DAILY 01/04/17 [History] Citalopram Hydrobromide [Celexa] 10 mg PO DAILY 01/04/17 [History] Losartan [Cozaar] 12.5 mg PO DAILY 01/04/17 [History] Lutein/Minerals/Vit A,C & E [Ocuvite] 1 tab PO DAILY 01/04/17 [History] Pantoprazole [Protonix] 40 mg PO DAILY 01/04/17 [History] Pravastatin [Pravachol] 20 mg PO BEDTIME 01/04/17 [History] Spironolactone [Aldactone] 25 mg PO DAILY 01/04/17 [History] Azithromycin [Zithromax] 250 mg PO Q24H #5 tablet 01/06/17 [Rx] Benzonatate [Tessalon Perles] 100 - 200 mg PO TID PRN #30 cap 01/06/17 [Rx] Digoxin 0.125 mg PO DAILY #30 tablet 01/06/17 [Rx] - Patient Data Vitals - Most Recent: Last Vital Signs Temp 97 F 01/06/17 11:26 Pulse 88 01/06/17 11:26 Resp 20 01/06/17 11:26 BP 133/66 01/06/17 09:27 Pulse Ox 95 01/06/17 11:26 Weight - Most Recent: 55 kg I&O - Last 24 hours: Intake & Output 01/05/17 01/06/17 01/06/17 22:59 06:59 14:59 Intake Total 480 450 50 Output Total 400 600 Balance 80 -150 50 Lab Results - Last 24 hrs: Laboratory Results - last 24 hr 01/06/17 01/06/17 Range/Units 04:44 04:44 WBC 6.94 (4.0-11.0) K/uL RBC 4.35 (4.30-5.90) M/uL Hgb 13.4 (12.0-16.0) g/dL Hct 40.7 (36.0-46.0) % MCV 93.6 (80.0-98.0) fL MCH 30.8 (27.0-32.0) pg MCHC 32.9 (31.0-37.0) g/dL RDW Std Deviation 44.4 (28.0-62.0) fl RDW Coeff of Drake 13 (11.0-15.0) % Plt Count 153 (150-400) K/uL MPV 10.30 (7.40-12.00) fL Neut % (Auto) 53.4 (48.0-80.0) % Lymph % (Auto) 31.4 (16.0-40.0) % [place] % (Auto) 11.5 (0.0-15.0) % Eos % (Auto) 3.3 (0.0-7.0) % Baso % (Auto) 0.4 (0.0-1.5) % Neut # (Auto) 3.7 (1.4-5.7) K/uL Lymph # (Auto) 2.2 (0.6-2.4) K/uL [place] # (Auto) 0.8 (0.0-0.8) K/uL Eos # (Auto) 0.2 (0.0-0.7) K/uL Baso # (Auto) 0.0 (0.0-0.1) K/uL Nucleated RBC % 0.0 /100WBC Nucleated RBCs # 0 K/uL Sodium 140 (136-146) mmol/L Potassium 3.9 (3.5-5.1) mmol/L Chloride 106 (98-110) mmol/L Carbon Dioxide 26 (21-31) mmol/L BUN 19 (6.0-23.0) mg/dL Creatinine 0.9 (0.6-1.5) mg/dL Est Cr Clr Drug Dosing 34.17 mL/min Estimated GFR (MDRD) 59.1 ml/min Glucose 99 (60-110) mg/dL Calcium 8.2 L (8.8-10.8) mg/dL Magnesium 1.8 (1.5-2.3) mEq/L Med Orders - Current: Current Medications Albuterol/Ipratropium (Duoneb 3.0-0.5 Mg/3 Ml) 3 ml NEB Q4HRRT PRN PRN Reason: SOB/Wheezing Aspirin (Halfprin) 81 mg PO DAILY [facility] Last Admin: 01/06/17 09:25 Dose: 81 mg Azithromycin (Zithromax) 500 mg PO Q24H [facility] Last Admin: 01/06/17 09:29 Dose: 500 mg Benzonatate (Tessalon Perles) 100 mg PO TID PRN PRN Reason: Cough Citalopram Hydrobromide (Celexa) 10 mg PO DAILY [facility] Last Admin: 01/06/17 09:23 Dose: 10 mg Digoxin (Lanoxin) 125 mcg PO Q2D [facility] Last Admin: 01/06/17 10:58 Dose: 125 mcg Furosemide (Lasix) 20 mg PO DAILY [facility] Last Admin: 01/06/17 09:27 Dose: 20 mg Ceftriaxone Sodium/Dextrose 1 (gm/ Premix) 50 mls @ 100 mls/hr IV Q24H [facility] Last Admin: 01/06/17 04:35 Dose: 100 mls/hr Losartan Potassium (Cozaar) 12.5 mg PO DAILY [facility] Last Admin: 01/06/17 09:24 Dose: 12.5 mg Metoprolol Tartrate (Lopressor) 75 mg PO BID [facility] Last Admin: 01/06/17 09:27 Dose: 75 mg Potassium Chloride (Klor-Con M20) 20 meq PO DAILY [facility] Last Admin: 01/06/17 09:26 Dose: 20 meq Rivaroxaban (Xarelto) 20 mg PO WITHDINNER [facility] Last Admin: 01/05/17 17:16 Dose: 20 mg Sodium Chloride (Saline Flush) 10 ml FLUSH ASDIRECTED PRN PRN Reason: Keep Vein Open Last Admin: 01/04/17 03:56 Dose: 10 ml Sodium Chloride (Saline Flush) 2.5 ml FLUSH ASDIRECTED PRN PRN Reason: Keep Vein Open Last Admin: 01/04/17 03:56 Dose: 2.5 ml Spironolactone (Aldactone) 25 mg PO DAILY [facility] Last Admin: 01/06/17 09:22 Dose: 25 mg Discontinued Medications Albuterol/Ipratropium (Duoneb 3.0-0.5 Mg/3 Ml) 3 ml NEB ONETIME ONE Stop: 01/04/17 04:42 Last Admin: 01/04/17 04:46 Dose: 3 ml Digoxin (Lanoxin) 125 mcg IVPUSH ONETIME ONE Stop: 01/05/17 14:46 Last Admin: 01/05/17 15:18 Dose: 125 mcg Sodium Chloride (Normal Saline) 1,000 mls @ 125 mls/hr IV .Bolus ONE Stop: 01/04/17 11:34 Last Admin: 01/04/17 04:02 Dose: 125 mls/hr Ceftriaxone Sodium/Dextrose 1 (gm/ Premix) 50 mls @ 100 mls/hr IV ONETIME ONE Stop: 01/04/17 06:19 Last Admin: 01/04/17 06:34 Dose: Not Given Azithromycin 500 mg/ Sodium (Chloride) 250 mls @ 250 mls/hr IV ONETIME ONE Stop: 01/04/17 07:20 Last Admin: 01/04/17 06:28 Dose: 250 mls/hr Ceftriaxone Sodium/Dextrose 1 (gm/ Premix) 50 mls @ 100 mls/hr IV ONETIME ONE Stop: 01/04/17 06:50 Last Admin: 01/04/17 06:28 Dose: 100 mls/hr Magnesium Sulfate 2 gm/ Premix 50 mls @ 50 mls/hr IV ONETIME ONE Stop: 01/05/17 09:03 Last Admin: 01/05/17 08:24 Dose: 50 mls/hr Magnesium Sulfate 2 gm/ Premix 50 mls @ 50 mls/hr IV ONETIME ONE Stop: 01/06/17 08:48 Last Admin: 01/06/17 08:49 Dose: 50 mls/hr Influenza Virus Vaccine (Fluzone/Fluarix Vaccine) 60 mcg IM .ONCE ONE Stop: 01/04/17 07:58 Non-Formulary Medication (Lutein/Minerals/Vit A,C & E) 1 tab PO DAILY [facility] Rivaroxaban (Xarelto) 20 mg PO DAILY [facility] Sodium Chloride (Saline Flush) 10 ml FLUSH ASDIRECTED PRN PRN Reason: Keep Vein Open Last Admin: 01/04/17 03:51 Dose: 10 ml Sodium Chloride (Saline Flush) 2.5 ml FLUSH ASDIRECTED PRN PRN Reason: Keep Vein Open Last Admin: 01/04/17 03:56 Dose: 2.5 ml *Q Meaningful Use (DIS) - VTE *Q VTE Criteria *Q: - Stroke *Q Stroke Criteria *Q: - AMI *Q AMI Criteria *Q:
[2017-01-06] MEDS: Benzonatate 100 MG Cap PO PRN ×2 (12:35→19:42)
--- NOTE | 2017-01-06 12:57 | PCM.PN ---
- General Info Date of Service: 01/06/17 Admission Dx/Problem (Free Text): Admission Diagnosis/Problem Admission Diagnosis/Problem Hypoxia Subjective Update: Feeling tired today, coughing a lot last night. Coughing continues No chest pain or SOB. Has no other complaints this morning. Does not feel ready for discharge today. Functional Status: Reports: pain controlled, tolerating diet, ambulating, urinating - Review of Systems General: Reports: Fatigue. Denies: Fever HEENT: Reports: no symptoms Pulmonary: Reports: cough, sputum. Denies: shortness of breath Cardiovascular: Reports: No Symptoms. Denies: Chest Pain, Palpitations, Edema Gastrointestinal: Reports: No symptoms. Denies: Abdominal pain, Nausea, Vomiting Genitourinary: Reports: no symptoms Musculoskeletal: Reports: no symptoms Skin: Reports: no symptoms Neurological: Reports: No Symptoms Psychiatric: Reports: no symptoms - Patient Data Vitals - most recent: Last Vital Signs Temp 97 F 01/06/17 11:26 Pulse 88 01/06/17 11:26 Resp 20 01/06/17 11:26 BP 133/66 01/06/17 09:27 Pulse Ox 95 01/06/17 11:26 Weight - most recent: 55 kg I&O - last 24 hours: Intake & Output 01/05/17 01/06/17 01/06/17 22:59 06:59 14:59 Intake Total 480 450 50 Output Total 400 600 Balance 80 -150 50 Lab Results last 24 hrs: Laboratory Results - last 24 hr 01/06/17 01/06/17 Range/Units 04:44 04:44 WBC 6.94 (4.0-11.0) K/uL RBC 4.35 (4.30-5.90) M/uL Hgb 13.4 (12.0-16.0) g/dL Hct 40.7 (36.0-46.0) % MCV 93.6 (80.0-98.0) fL MCH 30.8 (27.0-32.0) pg MCHC 32.9 (31.0-37.0) g/dL RDW Std Deviation 44.4 (28.0-62.0) fl RDW Coeff of Drake 13 (11.0-15.0) % Plt Count 153 (150-400) K/uL MPV 10.30 (7.40-12.00) fL Neut % (Auto) 53.4 (48.0-80.0) % Lymph % (Auto) 31.4 (16.0-40.0) % [place] % (Auto) 11.5 (0.0-15.0) % Eos % (Auto) 3.3 (0.0-7.0) % Baso % (Auto) 0.4 (0.0-1.5) % Neut # (Auto) 3.7 (1.4-5.7) K/uL Lymph # (Auto) 2.2 (0.6-2.4) K/uL [place] # (Auto) 0.8 (0.0-0.8) K/uL Eos # (Auto) 0.2 (0.0-0.7) K/uL Baso # (Auto) 0.0 (0.0-0.1) K/uL Nucleated RBC % 0.0 /100WBC Nucleated RBCs # 0 K/uL Sodium 140 (136-146) mmol/L Potassium 3.9 (3.5-5.1) mmol/L Chloride 106 (98-110) mmol/L Carbon Dioxide 26 (21-31) mmol/L BUN 19 (6.0-23.0) mg/dL Creatinine 0.9 (0.6-1.5) mg/dL Est Cr Clr Drug Dosing 34.17 mL/min Estimated GFR (MDRD) 59.1 ml/min Glucose 99 (60-110) mg/dL Calcium 8.2 L (8.8-10.8) mg/dL Magnesium 1.8 (1.5-2.3) mEq/L Med Orders - Current: Current Medications Albuterol/Ipratropium (Duoneb 3.0-0.5 Mg/3 Ml) 3 ml NEB Q4HRRT PRN PRN Reason: SOB/Wheezing Aspirin (Halfprin) 81 mg PO DAILY [facility] Last Admin: 01/06/17 09:25 Dose: 81 mg Azithromycin (Zithromax) 500 mg PO Q24H [facility] Last Admin: 01/06/17 09:29 Dose: 500 mg Benzonatate (Tessalon Perles) 100 mg PO TID PRN PRN Reason: Cough Last Admin: 01/06/17 12:35 Dose: 100 mg Citalopram Hydrobromide (Celexa) 10 mg PO DAILY [facility] Last Admin: 01/06/17 09:23 Dose: 10 mg Digoxin (Lanoxin) 125 mcg PO Q2D [facility] Last Admin: 01/06/17 10:58 Dose: 125 mcg Furosemide (Lasix) 20 mg PO DAILY [facility] Last Admin: 01/06/17 09:27 Dose: 20 mg Ceftriaxone Sodium/Dextrose 1 (gm/ Premix) 50 mls @ 100 mls/hr IV Q24H [facility] Last Admin: 01/06/17 04:35 Dose: 100 mls/hr Losartan Potassium (Cozaar) 12.5 mg PO DAILY [facility] Last Admin: 01/06/17 09:24 Dose: 12.5 mg Metoprolol Tartrate (Lopressor) 75 mg PO BID [facility] Last Admin: 01/06/17 09:27 Dose: 75 mg Potassium Chloride (Klor-Con M20) 20 meq PO DAILY [facility] Last Admin: 01/06/17 09:26 Dose: 20 meq Rivaroxaban (Xarelto) 20 mg PO WITHDINNER [facility] Last Admin: 01/05/17 17:16 Dose: 20 mg Sodium Chloride (Saline Flush) 10 ml FLUSH ASDIRECTED PRN PRN Reason: Keep Vein Open Last Admin: 01/04/17 03:56 Dose: 10 ml Sodium Chloride (Saline Flush) 2.5 ml FLUSH ASDIRECTED PRN PRN Reason: Keep Vein Open Last Admin: 01/04/17 03:56 Dose: 2.5 ml Spironolactone (Aldactone) 25 mg PO DAILY [facility] Last Admin: 01/06/17 09:22 Dose: 25 mg Discontinued Medications Albuterol/Ipratropium (Duoneb 3.0-0.5 Mg/3 Ml) 3 ml NEB ONETIME ONE Stop: 01/04/17 04:42 Last Admin: 01/04/17 04:46 Dose: 3 ml Digoxin (Lanoxin) 125 mcg IVPUSH ONETIME ONE Stop: 01/05/17 14:46 Last Admin: 01/05/17 15:18 Dose: 125 mcg Sodium Chloride (Normal Saline) 1,000 mls @ 125 mls/hr IV .Bolus ONE Stop: 01/04/17 11:34 Last Admin: 01/04/17 04:02 Dose: 125 mls/hr Ceftriaxone Sodium/Dextrose 1 (gm/ Premix) 50 mls @ 100 mls/hr IV ONETIME ONE Stop: 01/04/17 06:19 Last Admin: 01/04/17 06:34 Dose: Not Given Azithromycin 500 mg/ Sodium (Chloride) 250 mls @ 250 mls/hr IV ONETIME ONE Stop: 01/04/17 07:20 Last Admin: 01/04/17 06:28 Dose: 250 mls/hr Ceftriaxone Sodium/Dextrose 1 (gm/ Premix) 50 mls @ 100 mls/hr IV ONETIME ONE Stop: 01/04/17 06:50 Last Admin: 01/04/17 06:28 Dose: 100 mls/hr Magnesium Sulfate 2 gm/ Premix 50 mls @ 50 mls/hr IV ONETIME ONE Stop: 01/05/17 09:03 Last Admin: 01/05/17 08:24 Dose: 50 mls/hr Magnesium Sulfate 2 gm/ Premix 50 mls @ 50 mls/hr IV ONETIME ONE Stop: 01/06/17 08:48 Last Admin: 01/06/17 08:49 Dose: 50 mls/hr Influenza Virus Vaccine (Fluzone/Fluarix Vaccine) 60 mcg IM .ONCE ONE Stop: 01/04/17 07:58 Non-Formulary Medication (Lutein/Minerals/Vit A,C & E) 1 tab PO DAILY MERCED Rivaroxaban (Xarelto) 20 mg PO DAILY MERCED Sodium Chloride (Saline Flush) 10 ml FLUSH ASDIRECTED PRN PRN Reason: Keep Vein Open Last Admin: 01/04/17 03:51 Dose: 10 ml Sodium Chloride (Saline Flush) 2.5 ml FLUSH ASDIRECTED PRN PRN Reason: Keep Vein Open Last Admin: 01/04/17 03:56 Dose: 2.5 ml - Exam General: alert, oriented, cooperative Neck: supple Lungs: Clear to auscultation, Normal respiratory effort Cardiovascular: Regular Rate, Regular Rhythm Extremities: no edema Neurological: no new focal deficit Psy/Mental Status: alert, normal affect, normal mood - Problem List & Annotations (1) Hypoxia SNOMED Code(s): 118043496, 031307826 Code(s): R09.02 - HYPOXEMIA Status: Acute Current Visit: Yes (2) Pneumonia SNOMED Code(s): 220255652 Code(s): J18.9 - PNEUMONIA, UNSPECIFIED ORGANISM Status: Acute Current Visit: Yes (3) CHF, Congestive heart failure SNOMED Code(s): 25703808 Code(s): I50.9 - HEART FAILURE, UNSPECIFIED Status: Chronic Current Visit : No (4) A-fib SNOMED Code(s): 65569108 Code(s): I48.91 - UNSPECIFIED ATRIAL FIBRILLATION Status: Chronic Current Visit: No Qualifiers: Atrial fibrillation type: paroxysmal Qualified Code(s): I48.0 - Paroxysmal atrial fibrillation (5) HTN (hypertension) SNOMED Code(s): 17313604 Code(s): I10 - ESSENTIAL (PRIMARY) HYPERTENSION Status: Chronic Current Visit: No Qualifiers: Hypertension type: essential hypertension Qualified Code(s): I10 - Essential (primary) hypertension (6) Anticoagulated SNOMED Code(s): 31974058, 640300543 Code(s): Z79.01 - POLICE GUARD (CURRENT) USE OF ANTICOAGULANTS Status: Chronic Current Visit: Yes Annotation/Comment:: Xarelto - Problem List Review Problem List Initiated/Reviewed/Updated: Yes - My Orders Last 24 Hours: My Active Orders 01/06/17 09:00 Furosemide [Lasix] 20 mg PO DAILY Losartan [Cozaar] 12.5 mg PO DAILY Potassium Chloride [Klor-Con M20] 20 meq PO DAILY Spironolactone [Aldactone] 25 mg PO DAILY 01/06/17 11:02 Benzonatate [Tessalon Perles] 100 mg PO TID PRN 01/06/17 11:51 Ready for Discharge [RC] PER UNIT ROUTINE 01/06/17 12:12 [employer] Discontinue [Cardiac Monitoring Discontinue] [RC] Click To Edit 01/07/17 05:00 BASIC METABOLIC PANEL,BMP [CHEM] DAILY CBC WITH AUTO DIFF [HEME] DAILY MAGNESIUM [CHEM] DAILY - Plan Plan:: This 86 year old female admitted with hypoxia and suspected pneumonia 1. Hypoxia: Resolved. No longer needing oxygen. Encouraged IS use every hour at least. 2. Pneumonia: Community acquired, improving, Continue Azithromycin and Rocephin. . 3. Afib: Pacemaker, on Xarelto, Continue Metoprolol and Digoxin. With activity HR noted to 120s, asymptomatic. Will increase Digoxin dosing to daily from Q2d. Has followup with F[employer] Ceo & President on January 19. 4. CHF: BUN/ CR back to baseline. Lasix, Spironolactone 5. HTN: Restart Losartan for today monitor BP. VTE: Xarelto, ambulation DIspo: 1-2 days pending improvement.
[2017-01-06] MEDS: Rivaroxaban 10 MG Tab PO SCH (17:36)
[2017-01-07] MEDS: cefTRIAXone 1 GM in Premix Bag 1 BAG IV SCH (04:40)
[2017-01-07] MEDS: Azithromycin 250 MG Tab PO SCH (08:05)
[2017-01-07] MEDS: Spironolactone 25 MG Tab PO SCH (08:05)
[2017-01-07] MEDS: Aspirin 81 MG Tab.EC PO SCH (08:05)
[2017-01-07] MEDS: Potassium Chloride 20 MEQ Tab.ER PO SCH (08:06)
[2017-01-07] MEDS: Citalopram 20 MG Tab PO SCH (08:06)
[2017-01-07] MEDS: Furosemide 20 MG Tab PO SCH (08:06)
[2017-01-07] MEDS: Losartan 50 MG Tab PO SCH (08:06)
[2017-01-07] MEDS: Benzonatate 100 MG Cap PO PRN (09:47)
--- NOTE | 2017-01-07 11:05 | PCM.SN ---
- Free Text/Narrative Note: discharge summary addendum Lungs CTA oxygen saturation 90% and higher she feels ready to go home discharge had been planned for yesterday but was postponed. discharge home now with follow up as previously planned.
[2017-01-07 11:06] VITALS: BP 125/61
[2017-01-07] MEDS: Metoprolol Tartrate 25 MG Tab PO SCH (11:06)
== END 2017-01-07 12:15 | disposition home or self-care (01) | DRG 195 ==
LOC: MW.ED 03:23 → MW.MS 06:39
PROVIDERS: ADMIT Internal Medicine; ATTEND Internal Medicine
DX: J18.9 Pneumonia, unspecified organism (principal); R09.02 Hypoxemia; R50.9 Fever, unspecified; I10 Essential (primary) hypertension; I48.91 Unspecified atrial fibrillation; E78.00 Pure hypercholesterolemia, unspecified; I25.2 Old myocardial infarction; I50.9 Heart failure, unspecified; Z79.01 Long term (current) use of anticoagulants; Z79.899 Other long term (current) drug therapy; Z79.82 Long term (current) use of aspirin
CPT/HCPCS: 36415; 71010; 80053; 80162; 81001; 83605; 84484; 85025; 87040 ×2; 87070; 87205; 87804 ×2; 96361; 96365; 99285; J0456; J0696; J7040; J7050; 80048; 83735; 93005; 96367; 97802; 99284; A9270-GY; J1160; J3475

== ENCOUNTER → 2017-01-17 | Outpatient (CLI) | payer MEDICARE, OTHER | LOC: MW.CHIM 08:30 | PROVIDERS: ATTEND Internal Medicine | DX: J18.9 Pneumonia, unspecified organism (principal); R09.02 Hypoxemia | CPT/HCPCS: 99203 ==

== ENCOUNTER → 2017-01-24 | Outpatient (CLI) | payer MEDICARE, OTHER | END | disposition home or self-care (01) | LOC: MW.LAB 13:05 | PROVIDERS: ATTEND Internal Medicine Interventional Cardiology | DX: I25.10 Atherosclerotic heart disease of native coronary artery without angina pectoris (principal); I48.0 Paroxysmal atrial fibrillation | CPT/HCPCS: 36415; 80048; 80162 ==

== ENCOUNTER 2017-11-17 16:29 | Emergency (ER) | payer MEDICARE, OTHER ==
[2017-11-17] MEDS ORDERED: Sodium Chloride 0.9% 10 ML Syringe FLUSH PRN (16:47)
[2017-11-17] MEDS ORDERED: Sodium Chloride 0.9% 2.5 ML Syringe FLUSH PRN (16:47)
--- NOTE | 2017-11-17 16:47 | EDM.PDOC ---
ED HPI GENERAL MEDICAL PROBLEM - General Chief Complaint: Cardiovascular Problem Stated Complaint: IRREGULAR HEART RATE Time Seen by Provider: 11/17/17 16:47 Source of Information: Reports: Patient History Limitations: Reports: No Limitations - History of Present Illness INITIAL COMMENTS - FREE TEXT/NARRATIVE: HISTORY AND PHYSICAL: []87-year-old female presenting with irregular heart rate that has dropped down into the 30s History of Present Illness: []Patient was seen October 20, 2017 at the clinic. Pacemaker at that time was working well. history of CHF Myocardial infarct Hypertension Hyperlipidemia Atrial fibrillation Hypoxia Review of Systems: As per history of present illness and below otherwise all systems reviewed and negative. Past medical history: As per history of present illness and as reviewed below otherwise noncontributory. Surgical history: As per history of present illness and as reviewed below otherwise noncontributory. Social history: No reported history of drug or alcohol abuse. Family history: As per history of present illness and as reviewed below otherwise noncontributory. Physical exam: Alert and oriented female not a pain laying quietly and speaking on the exam table HEENT: Atraumatic, normocehpalic, pupils reactive, negative for conjunctival pallor or scleral icterus, mucous membranes moist, throat clear, neck supple, nontender, trachea midline. Lungs: Clear to auscultation, breath sounds equal bilaterally, chest non tender. Heart: S1S2, regular, negative for clicks, rubs, or JVD. Abdomen: Soft, nondistended, nontender. Negative for masses or hepatossplenmegaly. Negative for costovertebral tenderness. Pelvis: Stable nontender. Genitourinary: Deferred. Rectal: Deferred Extremities: Atraumatic, negative for cords or calf pain. Neurovascular unremarkable. Neuro: Awake, alert, oriented. Cranial nerves II through XII unremarkable. Cerebellum unremarkable. Motor and sensory unremarkable throughout. Exam nonfocal. 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 Onset: Today, Sudden Duration: Hour(s):, Resolved Prior to Arrival Quality: Reports: Same as Previous Episode Severity: Mild Improves with: Reports: None Worsens with: Reports: None - Related Data Allergies Allergy/AdvReac Type Severity Reaction Status Date / Time No Known Allergies Allergy Verified 11/17/17 16:52 Home Meds: Home Meds Metoprolol Tartrate [Lopressor] 100 mg PO BID 01/12/15 [History] Multivitamin [Multiple Vitamins] 1 tab PO DAILY 01/12/15 [History] [place]-3S/DHA/Epa/Fish Oil [Fish Oil Dr 1,000 mg Softgel] 1,000 mg PO DAILY 01/12 [History] Potassium Chloride 20 meq PO DAILY 01/12/15 [History] Citalopram Hydrobromide [Celexa] 10 mg PO DAILY 01/04/17 [History] Lutein/Minerals/Vit A,C & E [Ocuvite] 1 tab PO DAILY 01/04/17 [History] Pantoprazole [ProTONIX] 40 mg PO DAILY 01/04/17 [History] Pravastatin [Pravachol] 20 mg PO BEDTIME 01/04/17 [History] Spironolactone [Aldactone] 25 mg PO DAILY 01/04/17 [History] Digoxin 0.125 mg PO DAILY #30 tablet 01/06/17 [Rx] Apixaban [Eliquis] 5 mg PO DAILY 11/17/17 [History] Diltiazem [Cardizem] 120 mg PO DAILY 11/17/17 [History] Furosemide 20 mg PO BID 11/17/17 [History] Past Medical History HEENT History: Reports: Impaired Vision Cardiovascular History: Reports: Afib, High Cholesterol, Hypertension, [place] Other Cardiovascular History: cardiac arrest in May 2015 Respiratory History: Reports: None. Denies: Asthma, COPD, PE Gastrointestinal History: Reports: None. Denies: GERD, GI Bleed Genitourinary History: Reports: None. Denies: Chronic Renal Insuffiency Musculoskeletal History: Reports: None - Infectious Disease History Infectious Disease History: Reports: Chicken Pox, Measles Social & Family History - Family History Family Medical History: Noncontributory - Tobacco Use Smoking Status *Q: Never Smoker Second Hand Smoke Exposure: No - Caffeine Use Caffeine Use: Reports: Coffee Caffeine Use Comment: 1cup/day - Alcohol Use Days Per Week of Alcohol Use: 0 - Recreational Drug Use Recreational Drug Use: No ED ROS GENERAL - Review of Systems Review Of Systems: ROS reveals no pertinent complaints other than HPI. ED EXAM, GENERAL - Physical Exam Exam: See Below (see dictation) Course - Vital Signs Last Recorded V/S: Last Vital Signs Temp 36.1 C 11/17/17 16:49 Pulse 88 11/17/17 16:49 Resp 18 11/17/17 16:49 BP 108/90 11/17/17 16:49 Pulse Ox 94 L 11/17/17 16:49 - Orders/Labs/Meds Orders: Active Orders 24 hr Category Date Time Status Cardiac Monitoring [RC] . DIRECTED Care 11/17/17 16:47 Active Communication Order [RC] STAT Care 11/17/17 18:45 Active EKG Documentation Completion [RC] STAT Care 11/17/17 16:47 Active Chest 2V [CR] Stat Exams 11/17/17 16:48 Taken Sodium Chloride 0.9% [Saline Flush] Med 11/17/17 16:47 Active 10 ml FLUSH ASDIRECTED PRN Sodium Chloride 0.9% [Saline Flush] Med 11/17/17 16:47 Active 2.5 ml FLUSH ASDIRECTED PRN Saline Lock Insert [OM.PC] Stat Oth 11/17/17 16:47 Ordered Medication Orders Sodium Chloride (Saline Flush) 10 ml FLUSH ASDIRECTED PRN PRN Reason: Keep Vein Open Sodium Chloride (Saline Flush) 2.5 ml FLUSH ASDIRECTED PRN PRN Reason: Keep Vein Open Labs: Laboratory Tests 11/17/17 11/17/17 11/17/17 Range/Units 16:49 16:49 17:28 WBC 9.06 (4.0-11.0) K/uL RBC 4.90 (4.30-5.90) M/uL Hgb 16.0 (12.0-16.0) g/dL Hct 46.4 H (36.0-46.0) % MCV 94.7 (80.0-98.0) fL MCH 32.7 H (27.0-32.0) pg MCHC 34.5 (31.0-37.0) g/dL RDW Std Deviation 45.3 (28.0-62.0) fl RDW Coeff of Drake 13 (11.0-15.0) % Plt Count 189 (150-400) K/uL MPV 10.50 (7.40-12.00) fL Neut % (Auto) 56.3 (48.0-80.0) % Lymph % (Auto) 29.2 (16.0-40.0) % [place] % (Auto) 11.6 (0.0-15.0) % Eos % (Auto) 2.6 (0.0-7.0) % Baso % (Auto) 0.3 (0.0-1.5) % Neut # (Auto) 5.1 (1.4-5.7) K/uL Lymph # (Auto) 2.7 H (0.6-2.4) K/uL [place] # (Auto) 1.1 H (0.0-0.8) K/uL Eos # (Auto) 0.2 (0.0-0.7) K/uL Baso # (Auto) 0.0 (0.0-0.1) K/uL Nucleated RBC % 0.0 /100WBC Nucleated RBCs # 0 K/uL Sodium 137 (136-146) mmol/L Potassium 5.3 H (3.5-5.1) mmol/L Chloride 102 (98-110) mmol/L Carbon Dioxide 26 (21-31) mmol/L BUN 22 (6.0-23.0) mg/dL Creatinine 1.8 H (0.6-1.5) mg/dL Est Cr Clr Drug Dosing 16.76 mL/min Estimated GFR (MDRD) 26.5 ml/min Glucose 93 (60-110) mg/dL Calcium 9.8 (8.8-10.8) mg/dL Total Bilirubin 1.4 (0.1-1.5) mg/dL AST 24 (5-40) IU/L ALT 16 (8-54) IU/L Alkaline Phosphatase 74 (40-150) Troponin I < 0.10 (0.0-0.29) NG/ML Total Protein 7.1 (6.0-8.0) g/dL Albumin 3.9 (3.4-4.8) g/dL Globulin 3.2 (2.0-3.5) g/dL Albumin/Globulin Ratio 1.2 L (1.3-2.8) Urine Color YELLOW Urine Appearance CLEAR Urine pH 6.5 (5.0-8.0) Ur Specific [place] 1.020 (1.001-1.035) Urine Protein NEGATIVE (NEGATIVE) mg/dL Urine Glucose (UA) NEGATIVE (NEGATIVE) mg/dL Urine Ketones NEGATIVE (NEGATIVE) mg/dL Urine Occult Blood NEGATIVE (NEGATIVE) Urine Nitrite NEGATIVE (NEGATIVE) Urine Bilirubin NEGATIVE (NEGATIVE) Urine Urobilinogen >=8.0 H (<2.0) EU/dL Ur Leukocyte Esterase NEGATIVE (NEGATIVE) Urine RBC 0-1 (0-2/HPF) Urine WBC 0*1 (0-5/HPF) Ur Epithelial Cells MODERATE (NONE-FEW) Urine Bacteria RARE (NEGATIVE) Urine Mucus LIGHT (NONE-MOD) Meds: Medications Generic Name Dose Route Start Last Admin Trade Name Freq PRN Reason Stop Dose Admin Sodium Chloride 10 ml 11/17/17 16:47 Saline Flush FLUSH ASDIRECTED PRN Keep Vein Open Sodium Chloride 2.5 ml 11/17/17 16:47 Saline Flush FLUSH ASDIRECTED PRN Keep Vein Open Departure - Departure Time of Disposition: 19:02 Disposition: Home, Self-Care 01 Condition: Good Clinical Impression: Irregular heart rate Referrals: Ho Yoo MD [Primary Care Provider] - Forms: ED Department Discharge Additional Instructions: The following information is given to patients seen in the emergency department who are being discharged to home. This information is to outline your options for follow-up care. We provide all patients seen in our emergency department with a follow-up referral. The need for follow-up, as well as the timing and circumstances, are variable depending upon the specifics of your emergency department visit. If you don't have a primary care physician on staff, we will provide you with a referral. We always advise you to contact your personal physician following an emergency department visit to inform them of the circumstance of the visit and for follow-up with them and/or the need for any referrals to a consulting specialist. The emergency department will also refer you to a specialist when appropriate. This referral assures that you have the opportunity for followup care with a specialist. All of these measure are taken in an effort to provide you with optimal care, which includes your followup. Under all circumstances we always encourage you to contact your private physician who remains a resource for coordinating your care. When calling for followup care, please make the office aware that this follow-up is from your recent emergency room visit. If for any reason you are refused follow-up, please contact the [facility] emergency department at and asked to speak to the emergency department charge nurse. Do not take your potassium tomorrow then continue taking it on Monday as usual Follow-up with your medical provider The [employer] check did not identify any worrisome findings with your device - My Orders Last 24 Hours: My Active Orders 11/17/17 16:47 Cardiac Monitoring [RC] . DIRECTED EKG Documentation Completion [RC] STAT Sodium Chloride 0.9% [Saline Flush] 10 ml FLUSH ASDIRECTED PRN Sodium Chloride 0.9% [Saline Flush] 2.5 ml FLUSH ASDIRECTED PRN Saline Lock Insert [OM.PC] Stat 11/17/17 16:48 Chest 2V [CR] Stat 11/17/17 18:45 Communication Order [RC] STAT - Assessment/Plan Last 24 Hours: My Active Orders 11/17/17 16:47 Cardiac Monitoring [RC] . DIRECTED EKG Documentation Completion [RC] STAT Sodium Chloride 0.9% [Saline Flush] 10 ml FLUSH ASDIRECTED PRN Sodium Chloride 0.9% [Saline Flush] 2.5 ml FLUSH ASDIRECTED PRN Saline Lock Insert [OM.PC] Stat 11/17/17 16:48 Chest 2V [CR] Stat 11/17/17 18:45 Communication Order [RC] STAT
[2017-11-17 17:38] LABS: CHLORIDE,CL 102 mmol/L (98-110); SODIUM,NA 137 mmol/L (136-146)
[2017-11-18 01:10] VITALS: BP 98/60
--- NOTE | 2017-11-20 11:05 | CR ---
EXAM DATE: 11/17/17 PATIENT'S AGE: 87 Patient: LUCHO AUGUST Facility: [place], [place] Site . Site : [id number] Study: XRay Chest [id number]/2/2018 5:58:17 PM Ordering Physician: Doctor Bella Final Report: INDICATION: Chest pain. Shortness of breath. COMPARISON: 01/04/2017. FINDINGS/IMPRESSION: Shallow inspiration with resultant crowding of lung markings. No definite focal lung consolidation. No pleural effusions. Unchanged mild cardiomegaly. Unremarkable pulmonary vasculature. Cardiac pacemaker, as before. Diffuse bony demineralization and several age-indeterminate vertebral compression fractures. Dictated by Agustin Antoine MD @ 11/17/2017 6:38:49 PM Dictated by: Agustin Antoine MD @ 11/17/2017 18:39:21 (Electronic Signature) Report Signed by Proxy. NELSON
== END 2017-11-17 19:41 | disposition home or self-care (01) ==
LOC: MW.ED 16:29
DX: I49.9 Cardiac arrhythmia, unspecified (principal); I48.91 Unspecified atrial fibrillation; I10 Essential (primary) hypertension; E78.00 Pure hypercholesterolemia, unspecified; Z79.899 Other long term (current) drug therapy
CPT/HCPCS: 36415; 71046; 71046-26; 80053; 81001; 84484; 85025; 99283; 99285-25